=== PATIENT | female | born 1985 | race African-American/Black ===

== ENCOUNTER 2025-06-16 08:37 | Inpatient (IN) | payer MEDICAID, OTHER ==
[~2025-06-16] VITALS: Ht 180.3 cm; Wt 134.7 kg
--- NOTE | 2025-06-16 09:28 | ED.PDOC ---
Musculoskeletal HPI Comments A 39-YEAR-OLD FEMALE WITH A HISTORY OF HYPERTENSION, HYPERTHYROIDISM, PRESENTS LEFT CALF PAIN, WITH ASSOCIATED SWELLING. 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 PATIENT IS THOUGHT TO BE ABLE TO BEAR HER WEIGHT FULLY ON HER LEG, WITH THE NURSE ANY ABDOMINAL PAIN, SHORTNESS OF BREATH, CHEST PAIN, NAUSEA, VOMITING, DIARRHEA, OR ANY OTHER ASSOCIATED SYMPTOMS, MODIFIERS AT THIS TIME. NO OTHER SYMPTOMS REPORTED AT THIS TIME OF CARE. Chief Complaint: Lower Extremity Time Seen by MD: 09:24 Reviewed Notes: Nurses Notes, Medications, Allergies Allergies: Coded Allergies: NO KNOWN ALLERGIES (Unverified , 06/16/25) Home Meds Reported Medications Amlodipine Besylate (Amlodipine Besylate) 5 Mg Tab, 10 MG PO DAILY for 30 Days, MG 06/16/25 Methimazole (Methimazole) 5 Mg Tab, 5 MG PO DAILY, TAB 06/16/25 Propranolol HCl (Propranolol Hydrochloride) 40 Mg Tab, 40 MG PO DAILY, TAB 06/16/25 Information Source: Patient Mode of Arrival: Ambulatory Location: Left Extremity Location: Calf Timing: Days Prehospital treatment: None Severity: Moderate Able to Move Extremity: Yes Bear Weight: Fully Pain: Moderate Hand Dominance: Right Mechanism: None Circumstances: Work Related Onset of Symptoms: Spontaneous Symptoms: Swelling, Pain DVT Risk Factors: NONE Last Tetanus: Unknown Associated signs and symptoms: None Past Medical History PAST MEDICAL HISTORY: Anemia, HTN, Thyroid Surgical History: Denies all surgeries Family History Family History: Unknown Social History Smoker: Non-Smoker Alcohol: Denies ETOH Use Drugs: Denies Drug Use Lives In: Home Constitutional: denies: chills, diaphoresis, fatigue, fever, malaise, sweats, weakness, others EENTM: denies: blurred vision, double vision, ear bleeding, ear discharge, ear drainage, ear pain, ear ringing, eye pain, eye redness, hearing loss, mouth pain, mouth swelling, nasal discharge, nose bleeding, nose congestion, nose pain, photophobia, tearing, throat pain, throat swelling, voice changes, others Respiratory: denies: cough, hemoptysis, orthopnea, SOB at rest, shortness of breath, SOB with excertion, stridor, wheezing, others Cardiovascular: denies: chest pain, dizzy spells, diaphoresis, Dyspnea on exertion, edema, irregular heart beat, left arm pain, lightheadedness, palpitations, PND, syncope, others Gastrointestinal: denies: abdomen distended, abdominal pain, blood streaked bowels, constipated, diarrhea, dysphagia, difficulty swallowing, hematemesis, melena, nausea, poor appetite, poor fluid intake, rectal bleeding, rectal pain, vomiting, others Genitourinary: denies: abnormal vagina bleeding, burning, dyspareunia, dysuria, flank pain, frequency, hematuria, incontinence, pain, , vagina discharge, urgency, others Neurological: denies: dizziness, fainting, headache, left sided numbness, left sided weakness, numbness, paresthesia, pre-existing deficit, right sided numbness, right sided weakness, seizure, speech problems, tingling, tremors, weakness, others Musculoskeletal: reports: others (LEFT CALF SWELLING); denies: back pain, gout, joint pain, joint swelling, muscle pain, muscle stiffness, neck pain Integumetry: denies: bruises, change in color, change in hair/nails, dryness, laceration, lesions, lumps, rash, wounds, others Allergic/Immunocompromised: denies: Difficulty Healing, Frequent Infections, Hives, Itching, others Hematologic/Lymphatic: denies: anemia, blood clots, easy bleeding, easy bruising, swollen glands, others Endocrine: denies: excessive hunger, excessive sweating, excessive thirst, excessive urination, flushing, intolerance to cold, intolerance to heat, unexplained weight gain, unexplained weight loss, others Psychiatric: denies: anxiety, bipolar disorder, depression, hopeless, panic disorder, schizophrenia, sleepless, suicidal, others All Other Systems: Reviewed and Negative Physical Exam General Appearance: No Apparent Distress, Obese HEENT: Normal ENT Inspection, Pharynx Normal, TMs Normal Neck: Full Range of Motion, Non-Tender, Normal, Normal Inspection Respiratory: Chest Non-Tender, Lungs Clear, No Accessory Muscle Use, No Respiratory Distress, Normal Breath Sounds Cardiovascular: No Edema, No JVD, No Murmur, No Gallop, Normal Peripheral Pulses, Regular Rate/Rhythm Breast Exam: Deferred Gastrointestinal: No Organomegaly, Non Tender, No Pulsatile Mass, Normal Bowel Sounds, Soft Genitalia: Deferred Pelvic: Deferred Rectal: Deferred Extremities: No calf tenderness, Normal capillary refill, Normal range of motion, No pedal edema, Swelling (TENDERNESS AND SWELLING ON LEFT LOWER LEG, +DVT SIGNS. ), Tender (AND SWELLING ON LEFT LOWER LEG, NO REDNESS AND OPEN WOUND. ) Musculoskeletal : Apperance: Normal Neurologic: Alert, animal attendant II-XII nml as Tested, No Motor Deficits, Normal Affect, Normal Mood, No Sensory Deficits Cerebellar Function: Normal Reflexes: Normal Skin: Dry, Normal Color, Warm Peripheral Pulses: 2+ carotid (R), 2+ carotid (L), 2+ dorsalis pedis (R), 2+ dorsalis pedis (L) Lymphatic: No Adenopathy Was a procedure done? Was a procedure done?: No Differential Diagnosis EXT Differential Diagnosis: Cellulitis, Deep Vein Thrombosis, Contusion, Neurovascular injury X-Ray, Labs, Meds, VS Vital Signs Date Time Temp Pulse Resp B/P (MAP) Pulse Ox O2 Delivery O2 Flow Rate FiO2 06/16/25 12:14 86 19 96 Room Air* 0 21 06/16/25 08:39 98.5 74 18 149/92 98 98.5 Lab Test 06/16/25 10:10 Range/Units White Blood Count 6.3 4.4-10.8 10^3/uL Red Blood Count 3.39 L 4.0-5.20 10^6/uL Hemoglobin 6.4 *L 12.2-16.2 g/dL Hematocrit 22.1 L 36.0-46.0 % Mean Corpuscular Volume 65.3 L 80.0-100.0 fL Mean Corpuscular Hemoglobin 19.0 L 28.0-32.0 pg Mean Corpuscular Hemoglobin Concent 29.1 L 32.0-36.0 g/dL Red Cell Distribution Width 20.4 H 11.8-14.3 % Platelet Count 699 H 140-450 10^3/uL Mean Platelet Volume 7.4 6.9-10.8 fL Neutrophils (%) (Auto) 71.0 37.0-80.0 % Lymphocytes (%) (Auto) 17.1 10.0-50.0 % Monocytes (%) (Auto) 9.1 0.0-12.0 % Eosinophils (%) (Auto) 1.9 0.0-7.0 % Basophils (%) (Auto) 0.9 0.0-2.0 % Neutrophils # (Auto) 4.4 1.6-8.6 10 ^3/uL Lymphocytes # (Auto) 1.1 0.4-5.4 10 ^3/uL Monocytes # (Auto) 0.6 0-1.3 10 ^3/uL Eosinophils # (Auto) 0.1 0-0.8 10 ^3/uL Basophils # (Auto) 0.1 0-0.2 10 ^3/uL Nucleated Red Blood Cells 0.1 % Platelet Estimate Increased Hypochromasia (manual) Marked Anisocytosis (manual) Slight Microcytosis Marked Prothrombin Time 11.5 9.3-11.8 sec Prothrombin Time INR 1.09 0.9-1.15 Sodium Level 139 136-145 mmol/L Potassium Level 3.0 L 3.5-5.1 mmol/L Chloride Level 104 98-107 mmol/L Carbon Dioxide Level 26 20-31 mmol/L Anion Gap 9 5-15 Blood Urea Nitrogen 8 L 9-23 mg/dL Creatinine 0.86 0.550-1.02 mg/dL Glomerular Filtration Rate Calc 89 >90 mL/min BUN/Creatinine Ratio 9.3 L 10.0-20.0 Serum Glucose 82 74-106 mg/dL Calcium Level 8.9 8.7-10.4 mg/dL Iron Level 15 L 50-170 ug/dL Total Iron Binding Capacity 417 250-425 ug/dL Percent Iron Saturation 3.6 L 15-50 % Thyroid Stimulating Hormone (TSH) 4.76 0.55-4.78 uIU/mL Current Medications Medications (Trade) Dose Ordered Sig/Analia Route Start Time Stop Time Status Last Admin Enoxaparin Sodium (Lovenox) 120 mg ONCE ONCE SC 06/16/25 10:00 06/16/25 10:01 DC 06/16/25 10:41 PATIENT: MEGA STUBBS ACCT: [id number] UNIT: [id number] : 1985 LOC: ER ROOM / BED: / AGE / SEX: 39 / F ADM STATUS: REG ER SERVICE [id number] ORDERING PHYSICIAN: AMIE CARRASCO PROCEDURE(s): LLDVT - LT Lower DVT REASON: left lower leg pain and swelling ORDER NUMBER(s): [id number], ACCESSION NUMBER(s): [id number] Left lower extremity venous duplex Clinical History: left lower leg pain and swelling Comparison: None Technique: Duplex Doppler evaluation of the deep venous system of the left lower extremity from the common femoral vein to the popliteal vein including color Doppler and spectral/pulsed waveform analysis was performed. Findings: The common femoral vein demonstrates appropriate compressibility and waveform variability. There is compressibility/patency of the great saphenous vein at the proximal thigh. The femoral vein demonstrates appropriate compressibility and waveform variability. The deep femoral vein demonstrates appropriate compressibility and waveform variability. The popliteal vein demonstrates appropriate compressibility and waveform variability. There is normal compressibility at the tibioperoneal trunk. Impression: No left femoropopliteal venous thrombosis. Superficial thrombus is present in the left greater saphenous vein in the calf. X-Ray, Labs, Meds, VS Comment EXTERNAL MEDICAL RECORDS REVIEWED: [NONE] INDEPENDENT HISTORIANS: [NONE] SOCIAL DETERMINANTS OF HEALTH: [NONE] LABS ORDERED: CBC, BMP, THROMBIN TIME WITH INR, LOVENOX, IV REVIEWED AND INTERPRETED RESULTS: SEVERE ANEMIA OF A HEMOGLOBIN OF 6.4 IMAGING ORDERED: LT LOWER DVT: Superficial thrombus is present in the left greater saphenous vein in the calf.. NO FRACTURES OR DISLOCATION. PENDING RADIOLOGIST REPORT. TREATMENTS ORDERED: LOVENOX 120MG SQ PROCEDURES PERFORMED: NONE CRITICAL CARE TIME: NONE I HAVE DISCUSSED THE PATIENT WITH THE ATTENDING PHYSICIAN DR. DESIR] AND HE AGREES WITH THE PATIENT'S PLAN OF CARE AND DISPOSITION. Time of 1ST Reevaluation: 09:55 Reevaluation 1ST: Unchanged Patient Education/Counseling: Diagnosis, Treatment Family Education/Counseling: Diagnosis, Treatment Departure 1 Departure Time of Disposition: 10:00 Impression: Primary Impression: DVT (deep venous thrombosis) Qualified Codes: I82.462 - Acute embolism and thrombosis of left calf muscular vein Additional Impression: Anemia Qualified Codes: D64.9 - Anemia, unspecified Disposition: 09 ADMITTED INPATIENT Condition: Serious Additional Instructions: Critical Care Note Critical Care Time?: No Stability Stability form required: Yes Unstable for transfer: Requires medication (Requires Med for stabilization), ED Physician Assesment, Possible rapid decline Heart Score Heart Score: Heart Score Response (Comments) Value History N/A 0 EKG N/A 0 Age N/A 0 Risk Factors N/A 0 Troponin N/A 0 Total 0 I personally scribed for AMIE CARRASCO ([email or web address]) on 06/16/25 at 09:28. Electronically submitted by Chava Francisco ([email or web address]). I personally scribed for AMIE CARRASCO ([email or web address]) on 06/16/25 at 09:53. Electronically submitted by Chava Francisco ([email or web address]). I personally scribed for AMIE CARRASCO ([email or web address]) on 06/16/25 at 09:56. Electronically submitted by Chava Francisco ([email or web address]). I personally scribed for AMIE CARRASCO ([email or web address]) on 06/16/25 at 11:01. Electronically submitted by Chava Francisco ([email or web address]). I personally scribed for AMIE CARRASCO ([email or web address]) on 06/16/25 at 11:07. Electronically submitted by Chava Francisco ([email or web address]). AMIE CARRASCO Jun 16, 2025 09:28
--- NOTE | 2025-06-16 09:46 | DVH ---
Left lower extremity venous duplex Clinical History: left lower leg pain and swelling Comparison: None Technique: Duplex Doppler evaluation of the deep venous system of the left lower extremity from the common femor al vein to the popliteal vein including color Doppler and spectral/pulsed waveform analysis was perfo rmed. Findings: The common femoral vein demonstrates appropriate compressibility and waveform variability. There is compressibility/patency of the great saphenous vein at the proximal thigh. The femoral vein demonstrates appropriate compressibility and waveform variability. The deep femoral vein demonstrates appropriate compressibility and waveform variability. The popliteal vein demonstrates appropriate compressibility and waveform variability. There is normal compressibility at the tibioperoneal trunk. Impression: No left femoropopliteal venous thrombosis. Superficial thrombus is present in the left greater saphenous vein in the calf.
[2025-06-16 10:30] LABS: Hematocrit 22.1 % (36.0-46.0)
[2025-06-16 10:32] LABS: Mean Corpuscular Hemoglobin 19.0 pg (28.0-32.0); Mean Corpuscular Volume 65.3 fL (80.0-100.0); Nucleated Red Blood Cells % 0.1 %
[2025-06-16 10:39] LABS: Chloride 104 mmol/L (98-107); Sodium 139 mmol/L (136-145)
[2025-06-16 10:40] LABS: Anion Gap 9 (5-15); Carbon Dioxide 26 mmol/L (20-31)
[2025-06-16 10:41] LABS: Calcium 8.9 mg/dL (8.7-10.4); Potassium 3.0 mmol/L (3.5-5.1)
[2025-06-16] MEDS: ENOXAPARIN SOD 120 MG/0.8 ML SYRINGE SC ONE (10:41)
[2025-06-16 10:43] LABS: INR 1.09 (0.9-1.15); Prothrombin Time 11.5 sec (9.3-11.8)
[2025-06-16 10:45] LABS: BUN/Creatinine Ratio 9.3 (10.0-20.0); Glucose 82 mg/dL (74-106)
[2025-06-16 10:47] LABS: Blood Urea Nitrogen 8 mg/dL (9-23)
[2025-06-16 10:57] LABS: Hemoglobin 6.4 g/dL (12.2-16.2)
[2025-06-16 11:12] LABS: Anisocytosis Slight
[2025-06-16] MEDS: SODIUM CHLORIDE 0.9% 1,000 ML IV ONE (12:12)
[2025-06-16 12:14] VITALS: PULSE 86; RESP 19; O2SAT 96
[2025-06-16] MEDS ORDERED: DOCUSATE SOD 100 MG CAP PO PRN (13:00)
[2025-06-16] MEDS: SODIUM CHLORIDE 0.9% 1,000 ML IV SCH (13:00)
[2025-06-16] MEDS ORDERED: ONDANSETRON HCL 4 MG/2 ML VIAL IV PRN (13:00)
[2025-06-16] MEDS ORDERED: NITROGLYCERIN 0.4 MG SL TAB SL PRN (13:00)
[2025-06-16] MEDS ORDERED: MORPHINE SULFATE INJ 2 MG/ml SYRG IV PRN (13:00)
[2025-06-16] MEDS ORDERED: POTASSIUM CHL 20MEQ/100ML 100 ML IV SCH (13:00)
--- NOTE | 2025-06-16 13:53 | DVHHP2 ---
History of Present Illness Reason for Visit: calf pain and leg swelling History of Present Illness 39-year-old female with a past medical history of hypertension, hyperthyroidism, and anemia (no prior blood transfusions) presents with left calf pain and swelling ongoing for the past eight days. 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 She also endorses heavy menstrual bleeding, typically using 45 pads per day with clots, currently at the end of her menses with spotting. Her last gynecologic evaluation for known fibroids was over a year ago. She denies chest pain, shortness of breath, melena, hematochezia, hematemesis, or syncope. In the ED, vitals were stable. Labs notable for hemoglobin 6.4 hematocrit 22.1, platelet count 699, and potassium 3.0 . Duplex ultrasound revealed superficial thrombus in the left greater saphenous vein and thrombus in the left femoral and popliteal veins. She was given Lovenox in the ED but declines blood transfusion at this time. Hematology consult was requested for anemia management and guidance regarding anticoagulation given concurrent bleeding risk. will admit Past Medical History See HPI above Past Surgical History See HPI above Family History Reviewed, non-contributory to the management of this case. Past Social History The patient lives at home, denies smoking, alcohol or illicit drugs abuse. Review of Systems Constitutional: No: Fever, Chills, Sweats, Weakness, Malaise, Other Eyes: No: Pain, Vision change, Conjunctivae inflammation, Eyelid inflammation, Other, Redness ENT: No: Ear pain, Ear discharge, Nose pain, Nose discharge, Nose congestion, Mouth pain, Mouth swelling, Throat pain, Throat swelling, Other Respiratory: No: Cough, Dry, Shortness of breath, SOB with excertion, Wheezing, Hemoptysis, Pleuritic Pain, Sputum, Wheezing, Other Cardiovascular: No: Chest Pain, Palpitations, Orthopnea, Paroxysmal Noc. Dyspnea, Edema, Lt Headedness, Other Gastrointestinal: No: Nausea, Vomiting, Abdominal Pain, Diarrhea, Constipation, Melena, Hematochezia, Other Genitourinary: No Dysuria, No Frequency, No Incontinence, No Hematuria, No Retention, No Other Musculoskeletal: leg pain; No: other, neck pain, shoulder pain, arm pain, back pain, hand pain, foot pain Skin: No: Rash, Lesions, Jaundice, Bruising, Other Neurological: No: Weakness, Numbness, Incoordination, Change in speech, Confusion, Seizures, Other Allergies: Coded Allergies: NO KNOWN ALLERGIES (Unverified , 06/16/25) Medications Current Medications Medications Dose Ordered Sig/Analia Route Start Time Stop Time Status Last Admin Dose Admin Sodium Chloride 1,000 ml @ 120 mls/hr Q8H20M IV 06/16/25 13:00 Ondansetron HCl 4 mg Q4HP PRN IV 06/16/25 13:00 Docusate Sodium 100 mg BIDPRN PRN PO 06/16/25 13:00 Morphine Sulfate 2 mg Q4HPRN PRN IV 06/16/25 13:00 Nitroglycerin 0.4 mg Q5MINP PRN SL 06/16/25 13:00 Exam Vital Signs Vital Signs Date Time Temp Pulse Resp B/P (MAP) Pulse Ox O2 Delivery O2 Flow Rate FiO2 06/16/25 12:14 86 19 96 Room Air* 0 21 06/16/25 08:39 98.5 149/92 98.5 General Appearance: Alert, Oriented X3, Cooperative, Other (Pale in color) HEENT: Atraumatic, PERRLA, EOMI, Mucous membr. moist/pink Respiratory: Clear to auscultation, Normal air movement Cardiovascular: Regular rate, Normal S1, Normal S2, No murmurs Abdominal: Normal bowel sounds, Soft, No tenderness, No hepatospenomegaly, No masses Extremities: No clubbing, No cyanosis, Normal pulses, No tenderness/swelling, Other (Left lower extremity with swelling compartments soft) Neuro: Normal gait, Normal speech, Strength at 5/5 X4 ext, Normal tone, Sensation intact, Cranial nerves 3-12 NL Psych/Mental Status: Mental status NL, Mood NL Labs/Xrays Ultrasound shows superficial thrombus left greater saphenous vein in the calf no left femoral popliteal venous thrombosis I reviewed labs, imaging CT scan abdomen pelvis, EKG and all diagnostic studies on this patient from ED records and the medical chart Labs Test 06/16/25 10:10 Range/Units White Blood Count 6.3 4.4-10.8 10^3/uL Red Blood Count 3.39 L 4.0-5.20 10^6/uL Hemoglobin 6.4 *L 12.2-16.2 g/dL Hematocrit 22.1 L 36.0-46.0 % Mean Corpuscular Volume 65.3 L 80.0-100.0 fL Mean Corpuscular Hemoglobin 19.0 L 28.0-32.0 pg Mean Corpuscular Hemoglobin Concent 29.1 L 32.0-36.0 g/dL Red Cell Distribution Width 20.4 H 11.8-14.3 % Platelet Count 699 H 140-450 10^3/uL Mean Platelet Volume 7.4 6.9-10.8 fL Neutrophils (%) (Auto) 71.0 37.0-80.0 % Lymphocytes (%) (Auto) 17.1 10.0-50.0 % Monocytes (%) (Auto) 9.1 0.0-12.0 % Eosinophils (%) (Auto) 1.9 0.0-7.0 % Basophils (%) (Auto) 0.9 0.0-2.0 % Neutrophils # (Auto) 4.4 1.6-8.6 10 ^3/uL Lymphocytes # (Auto) 1.1 0.4-5.4 10 ^3/uL Monocytes # (Auto) 0.6 0-1.3 10 ^3/uL Eosinophils # (Auto) 0.1 0-0.8 10 ^3/uL Basophils # (Auto) 0.1 0-0.2 10 ^3/uL Nucleated Red Blood Cells 0.1 % Platelet Estimate Increased Hypochromasia (manual) Marked Anisocytosis (manual) Slight Microcytosis Marked Prothrombin Time 11.5 9.3-11.8 sec Prothrombin Time INR 1.09 0.9-1.15 Sodium Level 139 136-145 mmol/L Potassium Level 3.0 L 3.5-5.1 mmol/L Chloride Level 104 98-107 mmol/L Carbon Dioxide Level 26 20-31 mmol/L Anion Gap 9 5-15 Blood Urea Nitrogen 8 L 9-23 mg/dL Creatinine 0.86 0.550-1.02 mg/dL Glomerular Filtration Rate Calc 89 >90 mL/min BUN/Creatinine Ratio 9.3 L 10.0-20.0 Serum Glucose 82 74-106 mg/dL Calcium Level 8.9 8.7-10.4 mg/dL SEPSIS Sepsis Screen Date sepsis recognized/suspect: Jun 16, 2025 Time Sepsis recognized/suspect: 840 Recent Procedure: No On Antibiotic Therapy: No Respiratory Rate >20: No Heart Rate >90: No Temp<36 C (96.8 F) or >38.3 C: No SBP <90 or MAP <65 mmHG: No New Acute Mental Status Change: No Is the patient on CPAP, BIPAP,: No Physician Orders Lt Lower Dvt (06/16/25 09:09) Heplock Iv (06/16/25 ) Packedcell-Noactive Bleeding (06/16/25 11:01) Admit (06/16/25 12:46) Allergies (06/16/25 12:46) Code Status (06/16/25 12:46) Sodium Chloride 0.9% (06/16/25 13:00) Ondansetron Hcl (Zofran) (06/16/25 13:00) Docusate Sodium Capsule (Colace Capsule) (06/16/25 13:00) Complete Blood Count (06/17/25 04:00) Comprehensive Metabolic Panel (06/17/25 04:00) Condition: Stable (06/16/25 12:46) BRP (06/16/25 12:46) Morphine Sulfate Injection (06/16/25 13:00) Sequential Compression Device (06/16/25 ) Nitroglycerin Sublingual (Ntrostat Subli (06/16/25 13:00) Stat Ekg For Chest Pain (06/16/25 12:46) Notify Md Of Changes From Base (06/16/25 12:46) Health Underwriter For 24 Hours (06/16/25 12:46) Emergency Dysrhythmia Protocol (06/16/25 12:46) Rhythm Strips Once Every Shift (06/16/25 12:46) Oxygen By Nasal Cannula (06/16/25 12:46) Pelvic (06/16/25 12:46) Stool Occult Blood (06/16/25 12:46) Iron Panel (06/16/25 12:46) Thyroid Stimulating Hormone (06/16/25 12:46) * Hematology/Oncology Consult (06/16/25 12:46) Vital Signs Date Time Temp Pulse Resp B/P (MAP) Pulse Ox O2 Delivery O2 Flow Rate FiO2 06/16/25 12:14 86 19 96 Room Air* 0 21 06/16/25 08:39 98.5 74 18 149/92 98 98.5 Laboratory Tests Test 06/16/25 10:10 White Blood Count 6.3 10^3/uL (4.4-10.8) Medications Medications Dose Ordered Sig/Analia Route Start Time Stop Time Status Last Admin Dose Admin Enoxaparin Sodium 120 mg ONCE ONCE SC 06/16/25 10:00 06/16/25 10:01 DC 06/16/25 10:41 120 MG Assessment/Plan Assessment/Plan 39-year-old female with Symptomatic severe anemia and acute left lower extremity DVT in the setting of heavy menstrual bleeding from uterine fibroids. Acute Left Lower Extremity superficial Thrombosis left greater saphenous vein in calf femoral and popliteal vein no venous seen found on us pt was provided lovenox but will Hold anticoagulation temporarily due to active bleeding and severe anemia; reassess risk/benefit daily. Hematology consult for anticoagulation strategy and anemia . Monitor for signs of PE; low threshold for CT angiography if symptomatic. Elevate left leg and apply compression stockings as tolerated. ordered morphine as needed for pain acute Symptomatic Anemia likely secondary to heavy menstrual bleeding from fibroids Patient declines blood transfusion; discuss alternative options with hematology. Monitor CBC daily; current hemodynamic stability. Check iron studies, ferritin, B12, folate ordered occult blood in stool consider to start ferrous to be determined by rounding team acute Hypokalemia Replete potassium to maintain >4.0 Monitor BMP daily. 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 chronic problems Hypertension Continue home antihypertensives. Hyperthyroidism Continue current thyroid medication regimen; check TSH fu results Anemia Uterine Fibroids FEN / PPx Regular diet as tolerated. Replete electrolytes as needed, monitor daily. DVT: Anticoagulation currently held due to active bleeding; mechanical prophylaxis with SCDs. GI: no gi ppx since no hx of gerds or gi bleed Disposition: Admit to medical floor for anemia management, hematology and gynecology consul tation, electrolyte repletion, and DVT monitoring. Discharge when medically stable with outpatient follow-up for fibroid management and anticoagulation initiation if safe. Plan discussed with: Patient My Orders Orders - LORENZO YAO DNP Procedure Category Date Status Time Admit ADMIT 06/16/25 Transmitted 12:46 Allergies RASHAWN 06/16/25 In Process 12:46 Code Status CODE 06/16/25 Transmitted 12:46 Sodium Chloride 0.9% PHA 06/16/25 In Process 13:00 Ondansetron Hcl PHA 06/16/25 In Process (Zofran) 13:00 Docusate Sodium PHA 06/16/25 In Process Capsule (Colace 13:00 Complete Blood Count LAB 06/17/25 Verified 04:00 Comprehensive LAB 06/17/25 Verified Metabolic Panel 04:00 Condition: Stable RASHAWN 06/16/25 In Process 12:46 BRP RASHAWN 06/16/25 In Process 12:46 Morphine Sulfate PHA 06/16/25 In Process Injection 13:00 Sequential RASHAWN 06/16/25 In Process Compression Device Nitroglycerin PHA 06/16/25 In Process Sublingual (Ntrostat 13:00 Stat Ekg For Chest RASHAWN 06/16/25 In Process Pain 12:46 Notify Of Changes RASHAWN 06/16/25 In Process From Base 12:46 Health Underwriter For [facility] 06/16/25 In Process 24 Hours 12:46 Emergency Dysrhythmia RASHAWN 06/16/25 In Process Protocol 12:46 Rhythm Strips Once RASHAWN 06/16/25 In Process Every Shift 12:46 Oxygen By Nasal RT 06/16/25 Transmitted Cannula 12:46 Pelvic US 06/16/25 Taken 12:46 Stool Occult Blood LAB 06/16/25 Logged 12:46 Iron Panel LAB 06/16/25 Logged 12:46 Thyroid Stimulating LAB 06/16/25 Logged Hormone 12:46 * Hematology/Oncology CONS 06/16/25 Transmitted Consult 12:46 Date of Service: Jun 16, 2025 Billing Provider: LORENZO YAO DNP Common Visit Codes: [id number] INP/OBS CARE (HIGH) LORENZO YAO DNP Jun 16, 2025 13:53
[2025-06-16] MEDS: POTASSIUM CHL 20 Meq TABLET PO ONE (13:58)
--- NOTE | 2025-06-16 13:59 | DVH ---
INDICATION: eval for dub TECHNIQUE: Multiple real-time grayscale transabdominal sonographic images along with color and duplex Doppler of the uterus and ovaries were obtained. COMPARISON: None FINDINGS: The uterus measures 11 x 9 x 9 cm. The endometrial stripe measures 1.3 cm. Ovaries are not visualized. IMPRESSION: 1. Heterogeneous uterus with multiple fibroids, with the largest measuring 7 cm. Patient refused tra nsvaginal examination MRI with IV contrast recommended
[2025-06-16 14:12] LABS: Iron 15.0 ug/dL (50-170)
[2025-06-16 14:13] LABS: Total Iron Binding Capacity 417.0 ug/dL (250-425)
[2025-06-16 14:37] VITALS: BP 113/71; PULSE 76; RESP 16; TEMP 97.9; O2SAT 97
[2025-06-16 14:39] VITALS: BP 113/71; PULSE 76; RESP 16; TEMP 97.9; O2SAT 97
[2025-06-16] MEDS ORDERED: METH5TAB98 PO (14:56)
[2025-06-16] MEDS ORDERED: PROP40TA6 PO (14:56)
[2025-06-16] MEDS ORDERED: AMLO1TAB22 PO (14:56)
[2025-06-16 16:20] VITALS: BP 117/84; PULSE 78; RESP 16; TEMP 98.1; O2SAT 98
[2025-06-16 21:00] VITALS: BP 133/79; PULSE 81; RESP 20; TEMP 97.6; O2SAT 100
[2025-06-17 01:00] VITALS: BP 131/85; PULSE 80; RESP 20; TEMP 97.7; O2SAT 98
[2025-06-17 05:00] VITALS: BP 147/90; PULSE 80; RESP 19; TEMP 97.1; O2SAT 99
[2025-06-17 06:36] LABS: Hematocrit 20.9 % (36.0-46.0); Nucleated Red Blood Cells % 0.1 %
[2025-06-17 06:43] LABS: Mean Corpuscular Hemoglobin 19.2 pg (28.0-32.0); Mean Corpuscular Volume 64.9 fL (80.0-100.0)
[2025-06-17 06:55] LABS: Hemoglobin 6.2 g/dL (12.2-16.2)
[2025-06-17 07:12] LABS: Albumin 4.3 g/dL (3.2-4.8); Alkaline Phosphatase 68 U/L (46-116); Anion Gap 9 (5-15); BUN/Creatinine Ratio 19.7 (10.0-20.0); Bilirubin, Total 0.3 mg/dL (0.2-1.0); Blood Urea Nitrogen 13 mg/dL (9-23); Calcium 8.9 mg/dL (8.7-10.4); Carbon Dioxide 26 mmol/L (20-31); Chloride 107 mmol/L (98-107); Glucose 85 mg/dL (74-106); Sodium 142 mmol/L (136-145); Total Protein 7.3 g/dL (5.7-8.2)
[2025-06-17 07:15] LABS: Alanine Aminotransferase < 9 U/L (7-40); Potassium 3.3 mmol/L (3.5-5.1)
[2025-06-17 07:49] LABS: Anisocytosis Slight
[2025-06-17 08:39] VITALS: BP 137/91; PULSE 84; RESP 16; TEMP 97.4; O2SAT 98
[2025-06-17 12:38] VITALS: BP 117/89; PULSE 76; RESP 18; TEMP 97.2; O2SAT 99
--- NOTE | 2025-06-17 12:44 | DVHPN2 ---
Subjective DUPLICATE - disregard report Reviewed: Care Plan Changes from previous H/P or p: No Changes General: Per HPI Eyes: No Pain, No Vision change, No Conjunctivae inflammation, No Eyelid inflammation, No Other, No Redness ENT: No Ear pain, No Ear discharge, No Nose pain, No Nose discharge, No Nose congestion, No Mouth pain, No Mouth swelling, No Throat pain, No Throat swelling, No Other Cardiovascular: No Chest Pain, No Palpitations, No Orthopnea, No Paroxysmal Noc. Dyspnea, No Edema, No Lt Headedness, No Other Respiratory: No Cough, No Dry, No Shortness of breath, No SOB with excertion, No Wheezing, No Hemoptysis, No Pleuritic Pain, No Sputum, No Other Gastrointestinal: No Nausea, No Vomiting, No Abdominal Pain, No Diarrhea, No Constipation, No Melena, No Hematochezia, No Other Genitourinary: No Dysuria, No Frequency, No Incontinence, No Hematuria, No Retention, No Other Musculoskeletal: No other, No neck pain, No shoulder pain, No arm pain, No back pain, No hand pain; leg pain; No foot pain Skin: No Rash, No Lesions, No Jaundice, No Bruising, No Other Objective Vitals Vital Signs Date Time Temp Pulse Resp B/P (MAP) Pulse Ox O2 Delivery O2 Flow Rate FiO2 06/17/25 12:38 97.2 76 18 117/89 (98) 99 97.2 06/17/25 07:44 Room Air* 0 21 Intake/Output Intake and Output 06/17/25 07:00 Intake Total 305 ml Balance 305 ml Intake Oral 305 ml # Voids 2 General Appearance: Alert, Oriented X3, Cooperative, No acute distress, mild distress, moderate distress, severe distress, Other Lungs: Clear to auscultation, Normal air movement, Other Cardiovascular: Regular rate, Normal S1, Normal S2, No murmurs, Gallops, Rubs, Other Abdomen: Normal bowel sounds, Soft, No tenderness, No hepatospenomegaly, No masses, Other Extremities: No clubbing, No cyanosis, No edema, Normal pulses, No tenderness/swelling, Other Neuro: Normal gait, Normal speech, Strength at 5/5 X4 ext, Normal tone, S ensation intact, Cranial nerves 3-12 NL, Reflexes 2+, Other Medications Current Medications Medications Dose Ordered Sig/Analia Route Start Time Stop Time Status Last Admin Dose Admin Sodium Chloride 1,000 ml @ 120 mls/hr Q8H20M IV 06/16/25 13:00 Ondansetron HCl 4 mg Q4HP PRN IV 06/16/25 13:00 Docusate Sodium 100 mg BIDPRN PRN PO 06/16/25 13:00 Morphine Sulfate 2 mg Q4HPRN PRN IV 06/16/25 13:00 Nitroglycerin 0.4 mg Q5MINP PRN SL 06/16/25 13:00 Laboratory Results Laboratory Tests 06/17/25 06:05 Chemistry Test 06/17/25 06:05 Albumin 4.3 g/dL (3.2-4.8) Calcium Level 8.9 mg/dL (8.7-10.4) Total Protein 7.3 g/dL (5.7-8.2) LFT Test 06/17/25 06:05 Alanine Aminotransferase (ALT) < 9 U/L (7-40) Alkaline Phosphatase 68 U/L (46-116) Aspartate Amino Transferase (AST) 14 U/L (13-40) Total Bilirubin 0.3 mg/dL (0.2-1.0) Labs and/or images reviewed: Labs reviewed by me, Image(s) reviewed by me Assessment/Plan Assessment/Plan DUPLICATE - disregard report Found to have superficial vein thrombosis in great saphenous vein, there has been no remarks made by radiologist on size or proximity to saphenofemoral or saphenous popliteal junction, thus we are unable to Mary Kay recommendation and we will have to do prophylactic anticoagulation for 45 days. We will monitor patient inpatient to ensure improvement in no worsening, and we will also monitor pulmonary vitals DUPLICATE - disregard report Plan discussed with: Patient Date of Service: Jun 19, 2025 Billing Provider: GENI ECHOLS MD Common Visit Codes: NOT BILLABLE GENI ECHOLS MD Jun 17, 2025 12:44
--- NOTE | 2025-06-17 15:29 | DVHPN2 ---
Subjective Patient is seen at bedside today. Patient improving. Reviewed: Care Plan Changes from previous H/P or p: No Changes General: Per HPI Eyes: No Pain, No Vision change, No Conjunctivae inflammation, No Eyelid inflammation, No Other, No Redness ENT: No Ear pain, No Ear discharge, No Nose pain, No Nose discharge, No Nose congestion, No Mouth pain, No Mouth swelling, No Throat pain, No Throat swelling, No Other Cardiovascular: No Chest Pain, No Palpitations, No Orthopnea, No Paroxysmal Noc. Dyspnea, No Edema, No Lt Headedness, No Other Respiratory: No Cough, No Dry, No Shortness of breath, No SOB with excertion, No Wheezing, No Hemoptysis, No Pleuritic Pain, No Sputum, No Other Gastrointestinal: No Nausea, No Vomiting, No Abdominal Pain, No Diarrhea, No Constipation, No Melena, No Hematochezia, No Other Genitourinary: No Dysuria, No Frequency, No Incontinence, No Hematuria, No Retention, No Other Musculoskeletal: No other, No neck pain, No shoulder pain, No arm pain, No back pain, No hand pain; leg pain; No foot pain Skin: No Rash, No Lesions, No Jaundice, No Bruising, No Other Objective Vitals Vital Signs Date Time Temp Pulse Resp B/P (MAP) Pulse Ox O2 Delivery O2 Flow Rate FiO2 06/17/25 12:38 97.2 76 18 117/89 (98) 99 97.2 06/17/25 07:44 Room Air* 0 21 Intake/Output Intake and Output 06/17/25 07:00 Intake Total 305 ml Balance 305 ml Intake Oral 305 ml # Voids 2 Exam GEN: Healthy appearing, well-developed, NAD. HEENT: NC/AT; MMM. Conjunctival pallor, decreased capillary refill time CV: RRR, no m/r/g. LUNGS: CTAB, no w/r/c. ABD: Soft, NT/ND, NBS, no masses or organomegaly. EXT: skin Warm, well perfused. no rashes. No clubbing, cyanosis, or edema. NEURO: Ambulating with no limitations. No focal deficits. Medications Current Medications Medications Dose Ordered Sig/Analia Route Start Time Stop Time Status Last Admin Dose Admin Sodium Chloride 1,000 ml @ 120 mls/hr Q8H20M IV 06/16/25 13:00 Ondansetron HCl 4 mg Q4HP PRN IV 06/16/25 13:00 Docusate Sodium 100 mg BIDPRN PRN PO 06/16/25 13:00 Morphine Sulfate 2 mg Q4HPRN PRN IV 06/16/25 13:00 Nitroglycerin 0.4 mg Q5MINP PRN SL 06/16/25 13:00 Laboratory Results Laboratory Tests 06/17/25 06:05 Chemistry Test 06/17/25 06:05 Albumin 4.3 g/dL (3.2-4.8) Calcium Level 8.9 mg/dL (8.7-10.4) Total Protein 7.3 g/dL (5.7-8.2) LFT Test 06/17/25 06:05 Alanine Aminotransferase (ALT) < 9 U/L (7-40) Alkaline Phosphatase 68 U/L (46-116) Aspartate Amino Transferase (AST) 14 U/L (13-40) Total Bilirubin 0.3 mg/dL (0.2-1.0) Labs and/or images reviewed: Labs reviewed by me, Image(s) reviewed by me Assessment/Plan Assessment/Plan 39-year-old female with a past medical history of hypertension, hyperthyroidism, and anemia (no prior blood transfusions) presents with left calf pain and swelling ongoing for the past eight days. 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 She also endorses heavy menstrual bleeding, typically using 45 pads per day with clots, currently at the end of her menses with spotting. Her last gynecologic evaluation for known fibroids was over a year ago. She denies chest pain, shortness of breath, melena, hematochezia, hematemesis, or syncope. In the ED, vitals were stable. Labs notable for hemoglobin 6.4 hematocrit 22.1, platelet count 699, and potassium 3.0 . Duplex ultrasound revealed superficial thrombus in the left greater saphenous vein and thrombus in the left femoral and popliteal veins. She was given Lovenox in the ED but declines blood transfusion at this time. Hematology consult was requested for anemia management and guidance regarding anticoagulation given concurrent bleeding risk. will admit 06/17: Found to have superficial vein thrombosis in great saphenous vein, there has been no remarks made by radiologist on size or proximity to saphenofemoral or saphenous popliteal junction, thus we are unable to Mary Kay recommendation and we will have to do prophylactic anticoagulation for 45 days. We will monitor patient inpatient to ensure improvement in no worsening, and we will also monitor pulmonary vitals Left superficial vein thrombosis greater saphenous vein Symptomatic anemia Fibroids Heavy menstrual bleeding Hypokalemia Menorrhagia due uterine fibroids Hypertension Continue home antihypertensives. Hyperthyroidism Continue current thyroid medication regimen; check TSH fu results Anemia Uterine Fibroids Plan Consult patient on need for transfusion, patient is thinking about decisions Lovenox prophylaxis dose Continue home meds Pain control PRN Med surge Full code Plan discussed with: Patient Date of Service: Jun 17, 2025 Billing Provider: GENI ECHOLS MD Common Visit Codes: [id number] INP/OBS CARE(HIGH) GENI ECHOLS MD Jun 17, 2025 15:29
[2025-06-17] MEDS: POTASSIUM CHL 20 Meq TABLET PO ONE (15:37)
[2025-06-17 16:41] VITALS: BP 138/88; PULSE 72; RESP 18; TEMP 97.8; O2SAT 98
[2025-06-17 21:00] VITALS: BP 143/89; PULSE 83; RESP 19; TEMP 98; O2SAT 97
[2025-06-18] VITALS (10 sets, daily range): BP systolic 125–143; BP diastolic 66–96; PULSE 71–85; RESP 16–20; TEMP 96.9–98.2; O2SAT 98–100
[2025-06-18 07:32] LABS: Mean Corpuscular Volume 65.5 fL (80.0-100.0)
[2025-06-18 07:39] LABS: Hematocrit 22.8 % (36.0-46.0); Mean Corpuscular Hemoglobin 19.3 pg (28.0-32.0); Nucleated Red Blood Cells % 0.2 %
[2025-06-18 07:42] LABS: Hemoglobin 6.7 g/dL (12.2-16.2)
[2025-06-18 07:49] LABS: Alanine Aminotransferase 10 U/L (7-40); Albumin 4.8 g/dL (3.2-4.8); Alkaline Phosphatase 75 U/L (46-116); Anion Gap 10 (5-15); BUN/Creatinine Ratio 19.1 (10.0-20.0); Bilirubin, Total 0.4 mg/dL (0.2-1.0); Blood Urea Nitrogen 13 mg/dL (9-23); Calcium 9.5 mg/dL (8.7-10.4); Carbon Dioxide 27 mmol/L (20-31); Chloride 104 mmol/L (98-107); Glucose 89 mg/dL (74-106); Sodium 141 mmol/L (136-145); Total Protein 8.2 g/dL (5.7-8.2)
[2025-06-18 07:50] LABS: Potassium 3.4 mmol/L (3.5-5.1)
[2025-06-18] MEDS: IRON SUCROSE COMPLEX 110 ML IV SCH (12:00)
[2025-06-18] MEDS ORDERED: ACETAMINOPHEN 325 MG TAB PO ONE (12:45)
[2025-06-18] MEDS ORDERED: FER325T PO (13:57)
[2025-06-18] MEDS ORDERED: RIVA10TA PO (13:57)
--- NOTE | 2025-06-18 14:04 | DVHDS2 ---
Discharge Summary Date of Admission Jun 16, 2025 at 12:46 Date of Discharge: Jun 18, 2025 Labs/Diagnostic Data: Laboratory Results Test 06/18/25 06:53 06/17/25 06:05 06/16/25 10:10 White Blood Count 5.3 10^3/uL (4.4-10.8) Red Blood Count 3.48 10^6/uL (4.0-5.20) Hemoglobin 6.7 g/dL (12.2-16.2) Hematocrit 22.8 % (36.0-46.0) Mean Corpuscular Volume 65.5 fL (80.0-100.0) Mean Corpuscular Hemoglobin 19.3 pg (28.0-32.0) Mean Corpuscular Hemoglobin Concent 29.4 g/dL (32.0-36.0) Red Cell Distribution Width 20.3 % (11.8-14.3) Platelet Count 673 10^3/uL (140-450) Mean Platelet Volume 7.3 fL (6.9-10.8) Neutrophils (%) (Auto) 70.5 % (37.0-80.0) Lymphocytes (%) (Auto) 18.7 % (10.0-50.0) Monocytes (%) (Auto) 8.0 % (0.0-12.0) Eosinophils (%) (Auto) 2.1 % (0.0-7.0) Basophils (%) (Auto) 0.7 % (0.0-2.0) Neutrophils # (Auto) 3.7 10 ^3/uL (1.6-8.6) Lymphocytes # (Auto) 1.0 10 ^3/uL (0.4-5.4) Monocytes # (Auto) 0.4 10 ^3/uL (0-1.3) Eosinophils # (Auto) 0.1 10 ^3/uL (0-0.8) Basophils # (Auto) 0 10 ^3/uL (0-0.2) Nucleated Red Blood Cells 0.2 % Sodium Level 141 mmol/L (136-145) Potassium Level 3.4 mmol/L (3.5-5.1) Chloride Level 104 mmol/L (98-107) Carbon Dioxide Level 27 mmol/L (20-31) Anion Gap 10 (5-15) Blood Urea Nitrogen 13 mg/dL (9-23) Creatinine 0.68 mg/dL (0.550-1.02) Glomerular Filtration Rate Calc 114 mL/min (>90) BUN/Creatinine Ratio 19.1 (10.0-20.0) Serum Glucose 89 mg/dL (74-106) Calcium Level 9.5 mg/dL (8.7-10.4) Total Bilirubin 0.4 mg/dL (0.2-1.0) Aspartate Amino Transferase (AST) 16 U/L (13-40) Alanine Aminotransferase (ALT) 10 U/L (7-40) Alkaline Phosphatase 75 U/L (46-116) Total Protein 8.2 g/dL (5.7-8.2) Albumin 4.8 g/dL (3.2-4.8) Platelet Estimate Increased Hypochromasia (manual) Moderate Anisocytosis (manual) Slight Microcytosis Moderate Prothrombin Time 11.5 sec (9.3-11.8) Prothrombin Time INR 1.09 (0.9-1.15) Iron Level 15 ug/dL (50-170) Total Iron Binding Capacity 417 ug/dL (250-425) Percent Iron Saturation 3.6 % (15-50) Thyroid Stimulating Hormone (TSH) 4.76 uIU/mL (0.55-4.78) Other Laboratory Tests 06/18/25 06:53 Brief Hx & Hospital Course: 39-year-old female with a past medical history of hypertension, hyperthyroidism, and anemia (no prior blood transfusions) presents with left calf pain and swelling ongoing for the past eight days. 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 She also endorses heavy menstrual bleeding, typically using 45 pads per day with clots, currently at the end of her menses with spotting. Her last gynecologic evaluation for known fibroids was over a year ago. She denies chest pain, shortness of breath, melena, hematochezia, hematemesis, or syncope. In the ED, vitals were stable. Labs notable for hemoglobin 6.4 hematocrit 22.1, platelet count 699, and potassium 3.0 . Duplex ultrasound revealed superficial thrombus in the left greater saphenous vein and thrombus in the left femoral and popliteal veins. She was given Lovenox in the ED but declines blood transfusion at this time. Hematology consult was requested for anemia management and guidance regarding anticoagulation given concurrent bleeding risk. will admit 06/17: Found to have superficial vein thrombosis in great saphenous vein, there has been no remarks made by radiologist on size or proximity to saphenofemoral or saphenous popliteal junction, thus we are unable to Mary Kay recommendation and we will have to do prophylactic anticoagulation for 45 days. We will monitor patient inpatient to ensure improvement in no worsening, and we will also monitor pulmonary vitals 06/18: Today hemoglobin level still 6.7 patient is asymptomatic but meets critical level anemia. Discussed with patient we will give patient Venofer x1, and 1 unit RBC. Patient okay for discharge afterwards to follow up with PCP closely. Patient can do SCDs and/or leg compression socks for left superficial thrombosis if swelling worsens patient will start Xarelto. Patient will follow up with DC clinic closely to repeat hemoglobin level and symptom check. diagnosis: severe anemia, requiring transfusion Symptomatic anemia Left superficial vein thrombosis greater saphenous vein Heavy menstrual bleeding , mennorrhagia Hypokalemia Menorrhagia due uterine fibroids Hypertension Hyperthyroidism Uterine Fibroids discharge plan: - Take ferrous sulfate 325 mg every other day - Patient can do SCDs and/or leg compression socks for left superficial thrombosis if swelling worsens patient will start Xarelto. - Patient will follow up with DC clinic closely to repeat hemoglobin level and symptom check. - Patient's bleeding is likely from fibroids/ menstrual menorrhagia, patient needs close follow up with Gynecology outpatient. - Follow up with PCP to review discharge and repeat blood levels and have gynecological follow up. Condition at Discharge: Fair Final Diagnosis/Problems List severe anemia, requiring transfusion Symptomatic anemia Left superficial vein thrombosis greater saphenous vein Heavy menstrual bleeding , mennorrhagia Hypokalemia Menorrhagia due uterine fibroids Hypertension Hyperthyroidism Uterine Fibroids Discharge Disposition: Home Discharge Instruct/Medications Diet: Regular Activity: No Restrictions, As Tolerated Follow Up/Referral: See below Medications: SeeBelow Scheduled Amlodipine Besylate (Amlodipine Besylate), 10 MG PO DAILY, (Reported) Ferrous Sulfate (Ferrous Sulfate), 325 MG PO EOD Methimazole (Methimazole), 5 MG PO DAILY, (Reported) Propranolol HCl (Propranolol Hydrochloride), 40 MG PO DAILY, (Reported) Rivaroxaban (Xarelto), 1 TAB PO DAILY Discharge Statement: "Patient was advised to return to the ER or call 911 if any headaches, dizziness, shortness of breath, chest pain, abdominal pain, bleeding, fevers, or worsening of medical condition. Patient was counseled about treatment plan, medications, possible side effects, patientverbalized understanding. All questions were answered to the best of my ability. This discharge took greater then 30 minutes in planning, reviewing documentation, counseling the patient, and discussing with other team members." Date of Service: Jun 18, 2025 Billing Provider: GENI ECHOLS MD Common Visit Codes: 49086-EAK/OBS DISCH DAY >30min GENI ECHOLS MD Jun 18, 2025 14:04
[2025-06-18] MEDS: ACETAMINOPHEN 325 MG TAB PO ONE (16:29)
[2025-06-18] MEDS: ENOXAPARIN SOD 40 MG/0.4 ML SYRINGE SC SCH (17:06)
== END 2025-06-18 20:15 | disposition home or self-care (01) | DRG 663 ==
LOC: ER 08:37 → OVERFLOW 12:46 → CENTRAL 14:29
PROVIDERS: ADMIT Nurse Practitioner Family; ATTEND Nurse Practitioner Family
PROC: 30233N1 Transfusion of Nonautologous Red Blood Cells into Peripheral Vein, Percutaneous Approach (ICD-10-PCS; principal; 2025-06-18)
DX: D62 Acute posthemorrhagic anemia (principal); I82.412 Acute embolism and thrombosis of left femoral vein; I82.432 Acute embolism and thrombosis of left popliteal vein; I82.812 Embolism and thrombosis of superficial veins of left lower extremity; D25.9 Leiomyoma of uterus, unspecified; N92.0 Excessive and frequent menstruation with regular cycle; E87.6 Hypokalemia; E05.90 Thyrotoxicosis, unspecified without thyrotoxic crisis or storm; I10 Essential (primary) hypertension; Z79.899 Other long term (current) drug therapy
CPT/HCPCS: 36415; 76856; 80048; 80053; 83540; 83550; 84443; 85025; 85610; 86850; 86900; 86901; 86920; 93971; 96372; G0378; J1756

== ENCOUNTER 2025-07-17 09:26 | Outpatient (CLI) | payer MEDICAID ==
[~2025-07-17 09:26] MED LIST: AMLO1TAB22 PO; FER325T PO; METH5TAB98 PO; PROP40TA6 PO; RIVA10TA PO
[2025-07-17 09:54] LABS: Hematocrit 27.8 % (36.0-46.0); Hemoglobin 8.5 g/dL (12.2-16.2); Mean Corpuscular Hemoglobin 21.8 pg (28.0-32.0); Mean Corpuscular Volume 71.5 fL (80.0-100.0); Nucleated Red Blood Cells % 0.0 %
[2025-07-17 11:49] LABS: Anisocytosis Moderate; Giant Platelets Few
[2025-07-17 11:50] LABS: Stomatocytes Few
== END 2025-07-17 17:00 | disposition home or self-care (01) ==
LOC: LAB 09:26
PROVIDERS: ATTEND Internal Medicine
DX: E05.90 Thyrotoxicosis, unspecified without thyrotoxic crisis or storm (principal); D64.9 Anemia, unspecified; Z13.29 Encounter for screening for other suspected endocrine disorder
CPT/HCPCS: 36415; 84443; 85025; 86376; 86800

== ENCOUNTER 2025-10-20 08:53 | Emergency (ER) | payer MEDICAID ==
[~2025-10-20] VITALS: Ht 180.3 cm; Wt 136.0 kg
[2025-10-20 09:16] VITALS: BP 132/86; RESP 19; TEMP 97.8; O2SAT 98
[2025-10-20 09:29] LABS: Mean Corpuscular Volume 66.7 fL (80.0-100.0)
[2025-10-20 09:32] LABS: Hematocrit 23.9 % (36.0-46.0); Mean Corpuscular Hemoglobin 19.7 pg (28.0-32.0); Nucleated Red Blood Cells % 0.0 %
[2025-10-20 09:38] VITALS: PULSE 68
--- NOTE | 2025-10-20 09:38 | ED.PDOC ---
History of Present Illness HPI Comments 39 y/o morbidly obese F is BIBA from private residence for abnormal lab findings. Significant history for anemia - secondary to uterine fibroids w/menorrhagia, hypertension - on Propranolol and Amlodipine, and hyperthyroidism - on Methocarbamol. Patient reports on being advised on calling EMS by her PCP/surgeon after recent pre-op lab results for upcoming hysterectomy for uterine fibroids showed the patient having a Hgb level of 5.0. Patient complains of dizziness whenever, suddenly, standing. Denies any chest pain, shortness of breath, lightheadedness, or further acute symptoms. Additional pertinent history of LMP on 10/04/25, with endorsed 9x day history of heavy bleeding. Chief Complaint: General Weakness Time Seen by MD: 09:25 Reviewed Notes: Nurses Notes, Equity Sales Assistant Notes, Medications, Allergies Allergies: Coded Allergies: NO KNOWN ALLERGIES (Unverified , 06/16/25) Home Meds Active Scripts Ferrous Sulfate (Ferrous Sulfate) 325 Mg Tab, 325 MG PO EOD for 30 Days, #30 TAB 0 Refills Prov:GENI ECHOLS MD 06/18/25 Rivaroxaban (XARELTO) 10 Mg Tab, 1 TAB PO DAILY, #30 TAB 0 Refills Prov:GENI ECHOLS MD 06/18/25 Reported Medications Amlodipine Besylate (Amlodipine Besylate) 5 Mg Tab, 10 MG PO DAILY for 30 Days, MG 06/16/25 Methimazole (Methimazole) 5 Mg Tab, 5 MG PO DAILY, TAB 06/16/25 Propranolol HCl (Propranolol Hydrochloride) 40 Mg Tab, 40 MG PO DAILY, TAB 06/16/25 Information Source: Patient Mode of Arrival: EMS Severity: Moderate Timing: Hours Duration: Since onset Prehospital treatment: 12 Lead EKG, Orthopedics Pediatric Physician Past Medical History PAST MEDICAL HISTORY: Anemia, HTN (on Propranolol and Amlodipine), Thyroid (hyperthyroidism - on Methocarbamol) Surgical History: Denies all surgeries 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: Uterine Fibroids, Other (menorrhagia) Family History Family History: Unknown Social History Smoker: Non-Smoker Alcohol: Denies ETOH Use Drugs: Denies Drug Use Lives In: Home All Other Systems: Reviewed and Negative (Comprehensive systems review obtained and negative except for what is stated in the HPI.) Physical Exam General Appearance: No Apparent Distress, Obese HEENT: Normal ENT Inspection, Pharynx Normal, TMs Normal Neck: Full Range of Motion, Non-Tender, Normal, Normal Inspection Respiratory: Chest Non-Tender, Lungs Clear, No Accessory Muscle Use, No Respiratory Distress, Normal Breath Sounds Cardiovascular: No Edema, No JVD, No Murmur, No Gallop, Normal Peripheral Pulses, Regular Rate/Rhythm Breast Exam: Deferred Gastrointestinal: No Organomegaly, Non Tender, No Pulsatile Mass, Normal Bowel Sounds, Soft Genitalia: Deferred Pelvic: Deferred Rectal: Deferred Extremities: No calf tenderness, Normal capillary refill, Normal inspection, Normal range of motion, Non-tender, No pedal edema Musculoskeletal : Apperance: Normal Neurologic: Alert, distribution manager II-XII nml as Tested, No Motor Deficits, Normal Affect, Normal Mood, No Sensory Deficits Cerebellar Function: Normal Reflexes: Normal Skin: Dry, Pallor, Warm Lymphatic: No Adenopathy Was a procedure done? Was a procedure done?: No EKG EKG : Pulse Rate (adult): 68 [place]: Normal Cardiac Rhythm: NSR Block: None Hypertrophy: None ST: Normal Differential Dx Considerations may include: Anemia X-Ray, Labs, Meds, VS Vital Signs Date Time Temp Pulse Resp B/P (MAP) Pulse Ox O2 Delivery O2 Flow Rate FiO2 10/20/25 09:38 68 10/20/25 09:16 97.8 71 19 132/86 (101) 98 97.8 10/20/25 09:16 19 98 Room Air* 0 21 10/20/25 09:03 68 10/20/25 08:55 98.7 75 18 118/58 96 98.7 Lab Test 10/20/25 09:13 Range/Units White Blood Count 5.5 4.4-10.8 10^3/uL Red Blood Count 3.58 L 4.0-5.20 10^6/uL Hemoglobin 7.0 *L 12.2-16.2 g/dL Hematocrit 23.9 L 36.0-46.0 % Mean Corpuscular Volume 66.7 L 80.0-100.0 fL Mean Corpuscular Hemoglobin 19.7 L 28.0-32.0 pg Mean Corpuscular Hemoglobin Concent 29.5 L 32.0-36.0 g/dL Red Cell Distribution Width 18.7 H 11.8-14.3 % Platelet Count 450 140-450 10^3/uL Mean Platelet Volume 7.5 6.9-10.8 fL Neutrophils (%) (Auto) 70.4 37.0-80.0 % Lymphocytes (%) (Auto) 18.3 10.0-50.0 % Monocytes (%) (Auto) 9.2 0.0-12.0 % Eosinophils (%) (Auto) 1.3 0.0-7.0 % Basophils (%) (Auto) 0.8 0.0-2.0 % Neutrophils # (Auto) 3.9 1.6-8.6 10 ^3/uL Lymphocytes # (Auto) 1.0 0.4-5.4 10 ^3/uL Monocytes # (Auto) 0.5 0-1.3 10 ^3/uL Eosinophils # (Auto) 0.1 0-0.8 10 ^3/uL Basophils # (Auto) 0 0-0.2 10 ^3/uL Nucleated Red Blood Cells 0.0 % Platelet Estimate Adequate Hypochromasia (manual) Marked Anisocytosis (manual) Slight Microcytosis Moderate Stomatocytes Few Sodium Level 139 136-145 mmol/L Potassium Level 3.6 3.5-5.1 mmol/L Chloride Level 103 98-107 mmol/L Carbon Dioxide Level 25 20-31 mmol/L Anion Gap 11 5-15 Blood Urea Nitrogen 7 L 9-23 mg/dL Creatinine 0.82 0.550-1.02 mg/dL Glomerular Filtration Rate Calc 94 >90 mL/min BUN/Creatinine Ratio 8.5 L 10.0-20.0 Serum Glucose 83 74-106 mg/dL Calcium Level 9.1 8.7-10.4 mg/dL Troponin I High Sensitivity < 3 L </=34 ng/L Time of 1ST Reevaluation: 10:05 Reevaluation 1ST: Unchanged Patient Education/Counseling: Diagnosis, Treatment, Other (Need for admission for blood transfusion) Family Education/Counseling: No Family Present Additional Information Previous history reviewed: June 16, 2025 encounter for acute blood loss anemia The following tests were ordered, and results were reviewed by me: Blood type and screen, troponin, EKG, UA, CBC, BMP Additional Information was gathered from interviewing the following independent historians: N/A I reviewed and agreed with the following test results read by other providers: N/A I discussed treatment and results with medical personnel and: patient SEPSIS Sepsis Screen Date sepsis recognized/suspect: Oct 20, 2025 Time Sepsis recognized/suspect: 0855 Recent Procedure: No On Antibiotic Therapy: No Respiratory Rate >20: No Heart Rate >90: No Temp<36 C (96.8 F) or >38.3 C: No SBP <90 or MAP <65 mmHG: No New Acute Mental Status Change: No Is the patient on CPAP, BIPAP,: No Physician Orders Urinalysis (10/20/25 09:01) Electrocardigram (10/20/25 09:01) Type And Screen (10/20/25 09:29) Vital Signs Date Time Temp Pulse Resp B/P (MAP) Pulse Ox O2 Delivery O2 Flow Rate FiO2 10/20/25 09:38 68 10/20/25 09:16 97.8 71 19 132/86 (101) 98 97.8 10/20/25 09:16 19 98 Room Air* 0 21 10/20/25 09:03 68 10/20/25 08:55 98.7 75 18 118/58 96 98.7 Laboratory Tests Test 10/20/25 09:13 White Blood Count 5.5 10^3/uL (4.4-10.8) Departure 1 Departure Time of Disposition: 10:01 (Patient presents with requesting pad for an outpatient procedure. Patient's hemoglobin is greater than seven and she is asymptomatic. We will discharge patient home with outpatient follow up) Impression: Primary Impression: Anemia Disposition: 01 HOME / SELF CARE / HOMELESS Condition: Stable Additional Instructions: Your hemoglobin was 7 today. You should follow up with the regular doctor next week. Critical Care Note Critical Care Time?: No Stability Stability form required: No Heart Score Heart Score: Heart Score Response (Comments) Value History N/A 0 EKG N/A 0 Age N/A 0 Risk Factors N/A 0 Troponin N/A 0 Total 0 I personally scribed for DARELL BRAXTON MD ([email or web address]) on 10/20/25 at 09:38. Electronically submitted by Marcio Dbobs [email or web address]). DARELL BRAXTON MD Oct 20, 2025 09:38
[2025-10-20 09:39] LABS: Hemoglobin 7.0 g/dL (12.2-16.2)
[2025-10-20 09:40] LABS: Chloride 103 mmol/L (98-107); Potassium 3.6 mmol/L (3.5-5.1); Sodium 139 mmol/L (136-145)
[2025-10-20 09:42] LABS: Anion Gap 11 (5-15); Calcium 9.1 mg/dL (8.7-10.4); Carbon Dioxide 25 mmol/L (20-31)
[2025-10-20 09:47] LABS: Anisocytosis Slight; BUN/Creatinine Ratio 8.5 (10.0-20.0); Glucose 83 mg/dL (74-106); Stomatocytes Few
[2025-10-20 09:49] LABS: Blood Urea Nitrogen 7 mg/dL (9-23)
--- NOTE | 2025-10-23 10:06 | ECG ---
[facility] Test Date: 2025-10-20 Test Time: 09:03:10 Pat Name: MEGA STUBBS Department: [facility] ED Patient ID: [facility]-[id number] Room: Gender: F Administrative Director: FRANKIE : 1985 Requested By: DARELL BRAXTON Order Number: [id number] Reading MD: Mookie Deras Measurements Intervals [place] Rate: 68 P: -19 NV: 220 QRS: 15 QRSD: 112 T: -4 QT: 434 QTc: 462 Interpretive Statements Sinus rhythm Prolonged NV interval Consider anterior infarct Electronically Signed On 10-23-2025 15:22:12 PST by Mookie Deras Please click the below link to view image of tracing.
== END 2025-10-20 10:24 | disposition home or self-care (01) ==
LOC: ER 08:53 → EDBD 08:53 → EDUNIT# 08:53 → ER 10:24
DX: D64.9 Anemia, unspecified (principal); I10 Essential (primary) hypertension; Z79.899 Other long term (current) drug therapy
CPT/HCPCS: 36415; 80048; 82947; 84484; 85025; 86850; 86900; 86901; 93005